=== PATIENT | female | born 1945 | race African-American/Black ===

== ENCOUNTER 2017-08-03 13:02 | Emergency (ER) | payer MEDICARE, MEDICAID ==
[~2017-08-03] VITALS: Ht 170.2 cm; Wt 87.0 kg
[~2017-08-03 13:02] MED LIST: ATENOLOL; FURO-151; INSULIN; VALS160T2
[2017-08-03] MEDS ORDERED: TRAMADOL 50MG TABLET PO ONE (13:45)
[2017-08-03 16:47] VITALS: BP 159/87
== END 2017-08-03 16:50 | disposition home or self-care (01) ==
LOC: ER 13:13
DX: M79.1 Myalgia (principal); V43.52XA Car driver injured in collision with other type car in traffic accident, initial encounter; Y92.410 Unspecified street and highway as the place of occurrence of the external cause; E11.9 Type 2 diabetes mellitus without complications; I11.0 Hypertensive heart disease with heart failure; I50.9 Heart failure, unspecified; Z79.4 Long term (current) use of insulin
CPT/HCPCS: 72040; 73030; 73560; 99284

== ENCOUNTER 2022-06-02 21:50 | Emergency (ER) | payer MEDICARE, MEDICAID ==
[~2022-06-02] VITALS: Ht 172.7 cm; Wt 108.9 kg
[2022-06-02] MEDS ORDERED: HYDROCODONE/ACETAMINOPHEN 5/325MG TABLET PO ONE (23:30)
[2022-06-03] MEDS ORDERED: IBUP-2028 MT (01:29)
[2022-06-03 01:54] VITALS: BP 159/69
== END 2022-06-03 02:15 | disposition home or self-care (01) ==
LOC: ER 21:50
DX: S09.8XXA Other specified injuries of head, initial encounter (principal); S39.012A Strain of muscle, fascia and tendon of lower back, initial encounter; S40.021A Contusion of right upper arm, initial encounter; I11.0 Hypertensive heart disease with heart failure; I50.9 Heart failure, unspecified; E11.9 Type 2 diabetes mellitus without complications; Z98.1 Arthrodesis status; Z79.4 Long term (current) use of insulin; W01.0XXA Fall on same level from slipping, tripping and stumbling without subsequent striking against object, initial encounter; Y93.89 Activity, other specified; Y92.018 Other place in single-family (private) house as the place of occurrence of the external cause
CPT/HCPCS: 72100; 72170; 73090; 73100; 99284

== ENCOUNTER 2022-06-23 23:43 | Emergency (ER) | payer MEDICARE, MEDICAID ==
[~2022-06-23] VITALS: Ht 170.2 cm; Wt 95.5 kg
[~2022-06-23 23:43] MED LIST changes: +IBUP-2028 MT
[2022-06-24 02:27] VITALS: BP 149/71
[2022-06-24] MEDS ORDERED: PRED10TA MT (06:10)
== END 2022-06-24 06:18 | disposition home or self-care (01) ==
LOC: ER 23:43
DX: J45.909 Unspecified asthma, uncomplicated (principal); E11.9 Type 2 diabetes mellitus without complications; I10 Essential (primary) hypertension
CPT/HCPCS: 71045; 99283